=== PATIENT | female | born 1985 | race Caucasian/White ===

== ENCOUNTER 2016-11-24 17:40 | Emergency (ER) | payer SELFPAY ==
--- NOTE | 2016-11-24 18:29 | UC ---
Complaint Female HPI - HPI Summary HPI Summary: long past history of UTI's and yeast vaginitis, although not so bad the last year or so. Last week, took a bubble bath, had a cycle, suspected vaginitis based on itch. Used monitstat, but today has more dysuria and pressure, suspected UTI. 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 NO change in sexual partners and not active for several weeks, does not suspect STI. - History Of Current Complaint Chief Complaint: UCGU Stated Complaint: URINARY Time Seen by Provider: 11/24/16 18:25 Hx Obtained From: Patient Hx Last Menstrual Period: 11/14/16 Onset/Duration: Gradual Onset, Lasting Days - 5 Timing: Intermittent Severity Initially: Moderate Severity Currently: Moderate Character: Burning Aggravating Factor(s): Nothing Alleviating Factor(s): Nothing Associated Signs And Symptoms: Positive: Negative - Allergies/Home Medications Allergies/Adverse Reactions: Allergies Allergy/AdvReac Type Severity Reaction Status Date / Time Penicillins Allergy Intermediate Hives Verified 11/24/16 18:04 Home Medications: Home Medications Levonorgestrel (Iud) [Mirena IUD] 0 mcg 11/24/16 [History] Miconazole Nitrate Vaginal [Monistat 3] 4 % VA 11/24/16 [History] PMH/Surg Hx/FS Hx/Imm Hx Previously Healthy: Yes - Surgical History Surgical History: None - Family History Known Family History: Positive: Cardiac Disease - MGM of CHF - Social History Occupation: Employed Full-time Lives: Alone - at present, 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 Motor: Negative Neurovascular: Negative Musculoskeletal: Negative Neurological: Negative Psychological: Negative All Other Systems Reviewed And Are Negative: Yes Physical Exam Triage Information Reviewed: Yes Appearance: Well-Appearing Vital Signs: Initial Vital Signs Temp 98.3 F 11/24/16 18:08 Pulse 61 11/24/16 18:08 Resp 16 11/24/16 18:08 BP 128/76 11/24/16 18:08 Pulse Ox 100 11/24/16 18:08 Eye Exam: Normal Respiratory: Positive: Lungs clear Cardiovascular: Positive: RRR, No Murmur Abdomen Description: Positive: Nontender, Soft, Other: - mild erythema, vaginal discharge moderate Musculoskeletal Exam: Normal Neurological Exam: Normal Skin Exam: Normal Complaint Female Dx - Course Course Of Treatment: macrodantin for suspected UTI, diflucan for suspected candidal vaginitis. - Differential Dx/Diagnosis Differential Diagnosis/HQI/PQRI: Cervicitis, Sexually Transmitted Disease, Urinary Tract Infection Provider Diagnoses: UTI. vaginitis Discharge - Discharge Plan Condition: Stable Disposition: HOME Prescriptions: Fluconazole 100 MG TAB* [Diflucan 100 MG TAB*] 100 mg PO DAILY #7 tab Nitrofurantoin Monohyd Macro [Macrobid] 100 mg PO BID #14 cap Patient Education Materials: Urinary Tract Infection in Women (ED) Additional Instructions: Culture reports will be available on 11/26/16, and you will be called if a change in treatment is needed. You can call if you want to confirm the results. Meantime, you have prescriptions for both macrobid and diflucan. Continue yeast reduction diet and ensure a high fluid intake.
[2016-11-24 18:32] VITALS: BP 128/76
== END 2016-11-24 19:28 | disposition home or self-care (01) ==
LOC: UCCORT 17:40
DX: N39.0 Urinary tract infection, site not specified (principal); N76.0 Acute vaginitis; Z88.0 Allergy status to penicillin
CPT/HCPCS: 81003; 87086; 87480; 87510; 99202; G0463

== ENCOUNTER 2017-07-14 07:15 | Emergency (ER) | payer BC ==
[2017-07-14 07:23] VITALS: BP 115/71
--- NOTE | 2017-07-14 07:23 | UC ---
Complaint Female HPI - HPI Summary HPI Summary: 31 year old female presents with c/o of frequency and burning with urination. - History Of Current Complaint Chief Complaint: UCGU Stated Complaint: URINARY COMPLAINT Time Seen by Provider: 07/14/17 07:23 Hx Obtained From: Patient Hx Last Menstrual Period: 06/25/17, mirena Onset/Duration: Sudden Onset Timing: Constant Severity Initially: Moderate Severity Currently: Moderate Character: Sharp, Burning, Cramping - Allergies/Home Medications Allergies/Adverse Reactions: Allergies Allergy/AdvReac Type Severity Reaction Status Date / Time Penicillins Allergy Intermediate Hives Verified 07/14/17 07:23 Home Medications: Home Medications Multiple Vitamin [Multi Vitamin] 1 tab PO DAILY 07/14/17 [History Confirmed ] PMH/Surg Hx/FS Hx/Imm Hx Previously Healthy: Yes - Surgical History Surgical History: None - Family History Known Family History: Positive: Cardiac Disease - MGM of CHF - Social History Alcohol Use: Weekly Substance Use Type: None Smoking Status (MU): Never Smoked Tobacco Review of Systems Constitutional: Negative Skin: Negative Eyes: Negative ENT: Negative Respiratory: Negative Cardiovascular: Negative Gastrointestinal: Negative Genitourinary: Dysuria, Frequency, Urgency Motor: Negative Neurovascular: Negative Musculoskeletal: Negative Neurological: Negative Psychological: Negative All Other Systems Reviewed And Are Negative: Yes Physical Exam Triage Information Reviewed: Yes Vital Signs: Initial Vital Signs Temp 36.7 C 07/14/17 07:19 Pulse 61 07/14/17 07:19 Resp 14 07/14/17 07:19 BP 115/71 07/14/17 07:19 Pulse Ox 100 07/14/17 07:19 Vital Signs Reviewed: Yes Eye Exam: Normal ENT Exam: Normal Dental Exam: Normal Neck exam: Normal Neck: Positive: 1 Respiratory Exam: Normal Cardiovascular Exam: Normal Abdominal Exam: Normal Musculoskeletal Exam: Normal Neurological Exam: Normal Psychological Exam: Normal Skin Exam: Normal Complaint Female Dx - Differential Dx/Diagnosis Provider Diagnoses: urinary frequency. urinary urgency Discharge - Discharge Plan Condition: Stable Disposition: HOME Prescriptions: Nitrofurantoin Monohyd Macro [Macrobid] 100 mg PO BID #14 cap Patient Education Materials: Dysuria (ED) Referrals: Non Staff,Doctor [Primary Care Provider] -
--- NOTE | 2017-07-17 07:19 | ED ---
Progress - Progress Note Progress Note: NO CHANGE Course/Dx - Diagnoses Provider Diagnoses: UTI (urinary tract infection)
== END 2017-07-14 07:46 | disposition home or self-care (01) ==
LOC: UCCORT 07:15
DX: R35.0 Frequency of micturition (principal); R39.15 Urgency of urination; Z32.02 Encounter for pregnancy test, result negative
CPT/HCPCS: 81003; 84702; 87077; 87086; 87186; 99212; G0463